=== PATIENT | male | born 1955 | race Caucasian/White ===

== ENCOUNTER 2020-09-07 13:58 | Emergency (ER) | payer SELFPAY ==
[2020-09-07 13:59] VITALS: BP 118/84; PULSE 116; RESP 20; TEMP 36.1; O2SAT 98; BMI 20.5
--- NOTE | 2020-09-07 14:14 | CT_ITS ---
STUDY: CT BRAIN WITHOUT CONTRAST REASON FOR EXAM: Male, 64 years old. Syncope and seizures RADIATION DOSAGE (If Supplied By Facility): CTDIvol = ( 44.99 ) mGy, DLP = ( 796.11 ) mGycm TECHNIQUE: Transaxial CT imaging of the brain was performed without administration of intravenous contrast material. Individualized dose optimization techniques were used for this CT. COMPARISON: No relevant priors. FINDINGS: Normal soft tissue structures. Normal calvarium. Normal size ventricles and extra-axial spaces for the patient''s age. Basal cisterns are patent Nonspecific foci of low-attenuation in the periventricular and subcortical white matter likely related with chronic small vessel disease. There is no intracranial hemorrhage. There are no findings of an acute ischemic infarction. Paranasal sinus disease CT/Brain/Head without Contrast IMPRESSION: No acute intracranial findings Electronically Signed: Richard Santiago MD at 15:48 EST Tel , Service support ,
--- NOTE | 2020-09-07 14:14 | EKG12_ITS ---
Test Reason : SYNCOPE Blood Pressure : / mmHG Vent. Rate : 106 BPM Atrial Rate : 106 BPM P-R Int : 166 ms QRS Dur : 076 ms QT Int : 360 ms P-R-T Axes : 085 060 081 degrees QTc Int : 478 ms Sinus tachycardia Septal infarct , age undetermined Abnormal ECG Confirmed by MICHELLE MESSINA, SERGEI ([id number]), assignment desk editor RAVEN MALDONADO ([id number]) on 09/15/2020 11:22:41 AM Referred By: Confirmed By:CARLOS MARTINEZ MD
--- NOTE | 2020-09-07 14:15 | CT_ITS ---
STUDY: CTA CHEST REASON FOR EXAM: Male, 64 years old. SYNCOPE, POSSIBLE SEIZURE, PE RADIATION DOSAGE (If Supplied By Facility): CTDIvol = ( 7.04 ) mGy, DLP = ( 270.80 ) mGycm TECHNIQUE: The examination was performed with the intravenous administration of IV 100mL Isovue-300. Post-processing of the angiographic images was performed, with multiplanar reformation and 3D reconstruction. Individualized dose optimization techniques were used for this CT. COMPARISON: None. FINDINGS: Pulmonary artery and its branches demonstrate no evidence for filling defects to suggest acute pulmonary embolism. Coronary vascular calcifications. No evidence for mediastinal lymphadenopathy. Upper abdominal structures demonstrate no acute abnormalities. Calcifications of the thoracic aorta seen. A right upper lobe spiculated nodule seen measuring up to 1.3 cm possibly scarring however malignant nodule is not excluded. Follow-up with PET/CT or tissue characterization suggested. Bilateral emphysematous changes. Platelike atelectasis in the lung bases and patchy infiltrates in the right lower lobe. Multiple compression deformities of the thoracic spine noted of indeterminate age. IMPRESSION: No evidence for acute pulmonary embolism. No evidence for aortic dissection. COPD. Right upper lobe nodule measuring up to 1.3 cm possibly scarring however malignancy is not excluded. Please consider PET/CT and/or tissue characterization. Scattered small nodules are also seen bilaterally. Right lower lobe Subtle infiltrates. Electronically Signed: Richard Santiago MD at 15:57 EST Tel , Service support , CT/CTA Chest W/WO Contrast
[2020-09-07 14:36] LABS: Absolute Lymphocyte Count 1.55 X10^3/uL (0.83-4.51); Absolute Neutrophil Count 6.7 X10^3/uL (2.0-7.7); Basophil# 0.07 X10^3/uL; Basophil% 0.8 % (0-1); Eosinophil# 0.13 X10^3/uL; Eosinophils% 1.4 % (0-5); Hematocrit 41.6 % (40-54); Hemoglobin 14.4 g/dL (13.0-16.5); Lymphocyte # 1.55 X10^3/ul (4.0); Lymphocyte % 16.8 % (19-41); Mean Corp Hgb Conc 34.6 g/dL (32-36); Mean Corpuscular Volume 98.1 fL (80-94); Mean Platelet Vol. 9.8 fl (6.2-12.0); Monocyte# 0.76 X10^3/uL; Monocyte% 8.2 % (0-10); NRBC Flagged by Analyzer 0 % (0-5); Neutrophil # 6.68 X10^3/uL (2.7-7.7); Neutrophil % 72.4 % (47-70); POSITIVE COUNT YES; Platelet Count 218 K/mm3 (150-450); RBC Distribution Width CV 12.8 % (11.6-14.6); RBC Distribution Width SD 45.8 fl (35.1-43.9); Red Blood Count 4.24 M/mm3 (4.6-6.2); White Blood Count 9.2 K/mm3 (4.4-11.0)
--- NOTE | 2020-09-07 14:37 | ED.VIS.GEN ---
History of Present Illness Chief Complaint: Seizure Informant: Patient Narrative: This is a 64-year-old male presenting for syncope. Patient tells me that he was in the kitchen he was making chili. He states the next thing he knew he had passed out. He does not recall any prodrome. He does not recall any injuries. No loss of bowel or bladder control. No biting of his tongue. There was initial report that he had a seizure but the patient tells me he was told he did not have any shaking while he was on the ground. He states that he was told he was only out for less than a minute. He tells me that EMS came that he was already up and feeling normal but upon their arrival. This is never happened to him before. Patient states his heart rate may be up because he has not taken his blood pressure medications yet today. Patient denies any current pain. He denies feeling any different than when he did prior to this event. Patient tells me has not taken his blood pressure medications. He states he is on amitriptyline and Lipitor. However on we review his pharmacy records he is on amlodipine and lisinopril which he then states are the correct medications. I spoke with the daughter who witnessed the event. She tells me that they were cooking chili when he suddenly looked like he was going to become short of breath he began to shake and went to the ground. She tells me that he generally had convulsions for 2 to 3 minutes and then stopped. He was slightly confused for a very short period of time and then was fine. Past Medical History - Allergies and Home Meds Allergies/Adverse Reactions: Allergies Unable to Assess Allergy (Verified 09/07/20 13:58) Primary Care Physician: Jhon Ventura MD [Primary Care Provider] - 3-5 Days (Please inform the office when you call that is follow up from an ED visit) Past Medical History: - - Hypertension asthma Surgical History: noncontributory Lives: Spouse/ Significant Other Smoking Status: Current every day smoker Drugs: None Review of Systems General: Denies: Chills, Fever, Sweats Eyes: Denies: Visual changes - bilaterally, Diplopia ENT: Denies: Rhinorrhea, Sore throat Cardiovascular: Reports: - - Syncope. Denies: Chest pain, Palpitations, Heart racing Respiratory: Denies: Dyspnea, Cough, Dyspnea on exertion Gastrointestinal: Denies: Abdominal pain, Nausea, Vomiting, Diarrhea, Melena, Hematochezia Genitourinary: Denies: Dysuria, Hematuria, Frequency Musculoskeletal: Denies: Back pain, Extremity Pain Skin: Denies: Rash, Wounds Neurological: Denies: Headache, Weakness, Numbness Physical Exam Vital Signs/Narrative: Vital Signs Temp Pulse Resp BP Pulse Ox 09/07/20 13:59 97 F L 116 H 20 H 118/84 H 98 Inital Vital Signs reviewed: Yes General: Well nourished, Well developed, No Acute Distress Head: Normocephalic, Atraumatic Eyes: Perrl, EOMI ENT: Moist mucous membranes, No rhinorrhea Neck: Supple, Nontender Cardiovascular: Regular rate, No murmurs, Tachycardia Respiratory: No distress, CTA bilaterally, Chest nontender Abdomen: Soft, Nontender, Nondistended, Normal bowel sounds Back: Nontender, Normal Inspection Extremities: Nontender, No edema Skin: Normal color, No rash Neurological: Alert, Oriented x3, Cranial nerves II-XII grossly intact, Normal Strength, Normal Sensation Psychological: Normal affect, Normal Mood Diagnostic/Tx/Re-eval Laboratory Last Values WBC 9.2 K/mm3 (4.4-11.0) 09/07/20 14:20 RBC 4.24 M/mm3 (4.6-6.2) L 09/07/20 14:20 Hgb 14.4 g/dL (13.0-16.5) 09/07/20 14:20 Hct 41.6 % (40-54) 09/07/20 14:20 MCV 98.1 fL (80-94) H 09/07/20 14:20 MCH 34.0 pg (27.0-32.0) H 09/07/20 14:20 MCHC 34.6 g/dL (32-36) 09/07/20 14:20 RDW Std Deviation 45.8 fl (35.1-43.9) H 09/07/20 14:20 RDW Coeff of Ahsan 12.8 % (11.6-14.6) 09/07/20 14:20 Plt Count 218 K/mm3 (150-450) 09/07/20 14:20 MPV 9.8 fl (6.2-12.0) 09/07/20 14:20 Immature Gran % (Auto) 0.400 % (0.0-0.9) 09/07/20 14:20 Neut % (Auto) 72.4 % (47-70) H 09/07/20 14:20 Lymph % (Auto) 16.8 % (19-41) L 09/07/20 14:20 Norman % (Auto) 8.2 % (0-10) 09/07/20 14:20 Eos % (Auto) 1.4 % (0-5) 09/07/20 14:20 Baso % (Auto) 0.8 % (0-1) 09/07/20 14:20 Absolute Neuts (auto) 6.7 X10^3/uL (2.0-7.7) 09/07/20 14:20 Absolute Lymphs (auto) 1.55 X10^3/uL (0.83-4.51) 09/07/20 14:20 Nucleated RBC % 0 % (0-5) 09/07/20 14:20 Differential Comment SCANNED 09/07/20 14:20 Sodium 128 mmol/L (136-145) L 09/07/20 14:20 Potassium 3.5 mmol/L (3.5-5.1) 09/07/20 14:20 Chloride 96 mmol/L (98-107) L 09/07/20 14:20 Carbon Dioxide 22.0 mmol/L (21.0-32.0) 09/07/20 14:20 Anion Gap 10 (5-15) 09/07/20 14:20 BUN 5 mg/dL (7-18) L 09/07/20 14:20 Creatinine 0.82 mg/dL (0.70-1.30) 09/07/20 14:20 Estim Creat Clear Calc 68.22 ml/min 09/07/20 14:20 Est GFR (MDRD) Af Amer 120 mL/min (>60) 09/07/20 14:20 Est GFR (MDRD) Non-Af 99 mL/min (>60) 09/07/20 14:20 BUN/Creatinine Ratio 6.1 RATIO (10-20) L 09/07/20 14:20 Glucose 104 mg/dL (74-106) 09/07/20 14:20 Calcium 8.7 mg/dL (8.5-10.1) 09/07/20 14:20 Total Bilirubin 0.50 mg/dL (0.20-1.00) 09/07/20 14:20 AST 24 U/L (15-37) 09/07/20 14:20 ALT 17 U/L (16-61) 09/07/20 14:20 Alkaline Phosphatase 47 U/L (45-117) 09/07/20 14:20 Troponin I < 0.015 ng/mL (<0.045) 09/07/20 14:20 Total Protein 6.7 g/dL (6.4-8.2) 09/07/20 14:20 Albumin 3.5 g/dL (3.2-5.0) 09/07/20 14:20 Globulin 3.2 g/dL (2.2-4.2) 09/07/20 14:20 Albumin/Globulin Ratio 1.1 RATIO (0.9-2.4) 09/07/20 14:20 Clinical Impression(s) from Imaging Studies Brain CT 09/07/20 14:14 IMPRESSION: No acute intracranial findings Electronically Signed: Richard Santiago MD at 15:48 EST Tel , Service support , - EKG Initial EKG Interpretation: Sinus Tachycardia - EKG demonstrates a sinus tachycardia with PACs at a rate of 106. - Medical Decision Making Patient was observed on the monitor. Heart rate is come down to the 90s. It is almost always a sinus beat with the occasional ectopic atrial beat or PAC. Patient's work-up is essentially negative. CT the brain negative. CT of the chest was obtained because of the possibility of syncope in the face of tachycardia and to rule out pulmonary embolism, and dissection. Pulmonary nodule noted. There was concern about a small lower lobe pneumonia. Patient has no fever no cough no shortness of breath his lung sounds are clear. Patient was advised should he develop any symptoms he could return. The nodule was discussed with him and it was recommended he obtain follow-up. He will talk to his doctor about this. The daughter's description of events certainly seems like a seizure. It could also still be syncope. Either case I do not see a strong indication for admission. ED Disposition - Plan for ED Patient: Disposition: Home or Assisted Living Diagnosis: Syncope and collapse, Pulmonary nodule 1 cm or greater in diameter Instructions: ED Fainting, Uncertain Cause, ED Seizure New Onset Unknown ..., ED Pulmonary Nodule, Solitary Referrals: Jhon Ventura MD [Primary Care Provider] - 3-5 Days (Please inform the office when you call that is follow up from an ED visit)
[2020-09-07 14:52] LABS: ALB/GLOB Ratio 1.1 RATIO (0.9-2.4); AST(SGOT) 24 U/L (15-37); Alanine Aminotransfer ALT/SGPT 17 U/L (16-61); Albumin, Serum 3.5 g/dL (3.2-5.0); Alkaline Phosphatase 47 U/L (45-117); Anion Gap 10 (5-15); BUN 5 mg/dL (7-18); BUN/Creat Ratio 6.1 RATIO (10-20); Calcium,Total 8.7 mg/dL (8.5-10.1); Chloride 96 mmol/L (98-107); Creatinine, Serum 0.82 mg/dL (0.70-1.30); EST Glomerular Filtration Rate 99 mL/min (>60); Est Glom Filt Rate - Afr Amer 120 mL/min (>60); Estimated Creatinine Clearance 68.22 ml/min; Globulin 3.2 g/dL (2.2-4.2); Glucose 104 mg/dL (74-106); Potassium 3.5 mmol/L (3.5-5.1); Protein, Total 6.7 g/dL (6.4-8.2); Sodium Level 128 mmol/L (136-145)
[2020-09-07 14:54] LABS: Differential Indicated SCAN CRITERIA MET
[2020-09-07 14:58] LABS: Differential Comment SCANNED
[2020-09-07 15:34] VITALS: BP 159/83; PULSE 104; RESP 22; O2SAT 96
[2020-09-07 16:08] VITALS: BP 145/86
== END 2020-09-07 16:12 | disposition home or self-care (01) ==
PROVIDERS: Emergency Provider Emergency Medicine; PCP Family Medicine
DX: R55 Syncope and collapse (principal); R91.1 Solitary pulmonary nodule; I10 Essential (primary) hypertension; J44.9 Chronic obstructive pulmonary disease, unspecified; F17.200 Nicotine dependence, unspecified, uncomplicated; Z79.899 Other long term (current) drug therapy
CPT/HCPCS: 70450; 71275; 80053; 84484; 85025; 93005; 99285; Q9967; A4216

== ENCOUNTER → 2020-10-07 06:28 | Outpatient (CLI) | payer MEDICARE, SELFPAY ==
[2020-09-07 13:59] VITALS: BMI 20.5
--- NOTE | 2020-10-07 06:31 | CT_ITS ---
STUDY: CT SOFT TISSUE NECK WITH CONTRAST REASON FOR EXAM: Male, 65 years old. RIGHT CHEEK MASS RADIATION DOSAGE (If Supplied By Facility): CTDIvol = ( 10.63 ) mGy, DLP = ( 310.85 ) mGycm TECHNIQUE: The patient was scanned in a multi-detector CT scanner. High resolution transaxial imaging was performed following intravenous administration of IV 75mL Isovue-370. Sagittal and coronal images were reconstructed. Individualized dose optimization techniques were used for this CT. COMPARISON: None. FINDINGS: Normal bilateral parotid glands. Normal bilateral desktop publishing associate spaces. Normal bilateral parapharyngeal spaces. Normal bilateral carotid spaces. Normal bilateral sublingual and submandibular glands and spaces. This is a large soft tissue mass arising from the right side of the oropharynx extending caudally into the hypopharynx. This crosses the midline. This extends into the right maxillary region with destruction of the underlying bone. This extends into the soft tissues overlying the right mandible with bony destruction. This mass measures at least 4 cm x 3.8 cm x 5.4 cm. This mass extends into the palate as well. The palpable amount to correspond to 2.3 cm x 1.1 cm inhomogeneous soft tissue mass along the anterior aspect of the mandible. The visualized cervical lymph nodes (levels I-) are within normal size limits, and maintain normal morphology. There is no demonstrated solid or cystic mass lesion. There is no abnormal contrast enhancement. Normal epiglottis, bilateral vallecula and hypopharynx. The pre-epiglottic and paraglottic adipose spaces are normal. Normal visualized bilateral piriform sinuses, aryepiglottic folds, vocal cords, and arytenoid-cricoid articulations. Normal subglottic trachea. Normal bilateral lobes of the thyroid gland. Normal visualized pulmonary apices. Normal visualized paranasal sinuses. There is multilevel degenerative changes of the cervical spine. CT/Soft Tissue Neck WITH Contrast IMPRESSION: Large soft tissue mass arising from the oropharynx extending caudally into the hypopharynx. This crosses the midline. This also extends into the lateral aspect of the oropharynx into the right maxillary region with destruction of the underlying bone. The palpable abnormality corresponds to a 4 cm x 3.8 signed by 5.4 cm inhomogeneous mass. Electronically Signed: Patel Vaca MD at 9:16 EST , Service support ,
== END ==
PROVIDERS: PCP Family Medicine; Visit Provider Otolaryngology
DX: R22.0 Localized swelling, mass and lump, head (principal)
CPT/HCPCS: 70491; Q9967

== ENCOUNTER 2020-11-06 05:51 | Day surgery (SDC) | payer MEDICARE, SELFPAY ==
[2020-10-29 11:05] VITALS: BMI 15.9
[2020-10-31 14:04] VITALS: BMI 15.7
[2020-11-04 13:40] VITALS: BMI 16.2
[2020-11-06 06:31] VITALS: BP 136/72; PULSE 95; RESP 16; TEMP 37.5; O2SAT 97; BMI 15.5
[2020-11-06] MEDS: Lactated Ringers 1,000 ML 100 ML IV (06:38)
--- NOTE | 2020-11-06 07:00 | HP_ITS ---
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 Arjun Emerson MD) Jaw pain, non-TMJ (Acute) Squamous cell cancer of hypopharynx (Acute) COPD (chronic obstructive pulmonary disease) (Chronic) HTN (hypertension) (Chronic) Surgical History No history of previous surgery (Acute) Family History Other No pertinent family history Social History (Updated 10/31/20 @ 15:[address] Arjun Emerson MD) Smoking Status: Current every day smoker HPI HPI HPI: Clementina CUADRA, is a 65 M who presents to the office today for HPI HPI Surgical H&P: Yes HPI: Clementina CUADRA, is a 65 M who presents to the office today for oral cancer. The patient was referred for PEG tube placement as well as port placement. ROS General General: Yes weight change and fatigue; no appetite, colon cancer, breast cancer or weakness HEENT HEENT: No difficulty swallowing, eye injury, eye surgery, swollen glands or hoarseness Endo Endocrine: No thyroid disease, diabetes mellitus, thyroid cancer, Hair loss, heat intolerance or cold intolerance Cardio Cardiovascular: Yes high blood pressure; no murmur, pacemaker, heart disease, atrial fibrillation, heart attack, heart stent, palpitations, shortness of breat with exertion or chest pain Psych Psychiatric: No depression, anxiety or hearing voices Resp Respiratory: No shortness of breath, No sleep apnea, No cough, Yes COPD, No asthma, No emphysema, No wheezing Gastro Gastrointestinal: No abdominal pain, No nausea or vomiting, No diarrhea, No constipation, No blood in stool, No acid reflux, No hemorrhoids, No ulcers, No gallbladder problem, No black,tarry stools Rasta Hematologic: No blood thinners, No blood disorders, No bleeding, No anemia, No blood clots Neuro Neurologic: No weakness Exam Const General: cooperative Orientation: alert, oriented x3 HENMT Other: Right-sided facial swelling Resp Effort & Inspection: normal respiratory effort Auscultation: clear to auscultation bilaterally Cardio Rate: regular rate Rhythm: regular rhythm Heart Sounds: no murmurs GI Inspection: non-distended Palpation: soft, nontender Assessment & Plan Problems 1. 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 Encounter for care related to Port-a-Cath Z45.2 Plan I discussed EGD with PEG tube placement as well as port placement. I discussed the risks involved with both procedures and both procedures in detail. I discussed the risks of the port including but not limited to bleeding, infection, pneumothorax, line infection or DVT. I explained endoscopy in detail to the patient. I explained the risks including but not limited to stroke or heart attack with anesthesia, perforation of the GI tract, bleeding, infection. I explained that any of these could necessitate further emergency surgery. The patient understands and all questions were answered sufficiently. The patient wishes to proceed with procedure. 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 There are no clinical changes since date of exam.
[2020-11-06] MEDS: Cefotetan 2 GM in 0.9% NS 100 ML IV (07:27)
[2020-11-06] MEDS: Bupiv/Epi 0.25% 30 ML Vial (07:44)
[2020-11-06 08:10] VITALS: BP 106/61; BP 136/72; PULSE 88; RESP 16; TEMP 36.6; O2SAT 96
--- NOTE | 2020-11-06 08:10 | OP.EGD_ITS ---
Patient Name: Clementina Darling Procedure Date: 11/06/2020 7:53 AM Date of : 1955 Age: 65 Procedure: Upper GI endoscopy Indications: Place PEG Providers: Arjun Emerson MD Referring MD: Jhon Ventura Medicines: Monitored Anesthesia Care Patient Profile: This is a 65 year old male. Refer to note in patient chart for documentation of history and physical. Complications: No immediate complications. Estimated blood loss: Minimal. Procedure: Pre-Anesthesia Assessment: - Prior to the procedure, a History and Physical was performed, and patient medications and allergies were reviewed. The patient's tolerance of previous anesthesia was also reviewed. The risks and benefits of the procedure and the sedation options and risks were discussed with the patient. All questions were answered, and informed consent was obtained. Prior Anticoagulants: The patient has taken no previous anticoagulant or antiplatelet agents. After reviewing the risks and benefits, the patient was deemed in satisfactory condition to undergo the procedure. After obtaining informed consent, the endoscope was passed under direct vision. Throughout the procedure, the patient's blood pressure, pulse, and oxygen saturations were monitored continuously. The Endoscope was introduced through the mouth, and advanced to the second part of duodenum. The upper GI endoscopy was accomplished without difficulty. The patient tolerated the procedure well. Scope In: 7:53:38 AM Scope Out: 8:00:29 AM Total Procedure Duration Time 0 hours 6 minutes 51 seconds Findings: The patient was placed in the supine position for PEG placement. The stomach was insufflated to appose gastric and abdominal schafer. A site was located in the body of the stomach with excellent transillumination and manual external pressure for placement. The abdominal wall was marked and prepped in a sterile manner. The area was anesthetized with 5 mL of 0.5% lidocaine. The trocar needle was introduced through the abdominal wall and into the stomach under direct endoscopic view. A snare was introduced through the endoscope and opened in the gastric lumen. The guide wire was passed through the trocar and into the open snare. The snare was closed around the guide wire. The endoscope and snare were removed, pulling the wire out through the mouth. A skin incision was made at the site of needle insertion. The externally removable 20 Fr EndoVive Safety gastrostomy tube was lubricated. The G-tube was tied to the guide wire and pulled through the mouth and into the stomach. The trocar needle was removed, and the gastrostomy tube was pulled out from the stomach through the skin. The external bumper was attached to the gastrostomy tube, and the tube was cut to remove the guide wire. The final position of the gastrostomy tube was confirmed by relook endoscopy, and skin marking noted to be 3 cm at the external bumper. The final tension and compression of the abdominal wall by the PEG tube and external bumper were checked and revealed that the bumper was loose and lightly touching the skin and that the PEG balloon was loose and lightly touching the stomach. The feeding tube was capped, and the tube site cleaned and dressed. Impression: - An externally removable PEG placement was successfully completed. - No specimens collected. Recommendation: - Discharge patient to home. - Resume previous diet. - Continue present medications. - Please follow the post-PEG recommendations including: external bolster 1 cm from abdominal wall, change dressing once per day and check site for bleeding q 4 hrs. Procedure Code(s): --- Professional --- 52364, Esophagogastroduodenoscopy, flexible, transoral; with directed placement of percutaneous gastrostomy tube Diagnosis Code(s): --- Professional --- Z43.1, Encounter for attention to gastrostomy CPT copyright 2017 [employer]. All rights reserved. The codes documented in this report are preliminary and upon hoop cutter review may be revised to meet current compliance requirements. Arjun Emerson MD 11/06/2020 8:10:36 AM This report has been signed electronically. Number of Addenda: 0 Note Initiated On: 11/06/2020 7:53 AM
--- NOTE | 2020-11-06 08:11 | OP.CCLET_ITS ---
11/06/2020 Jhon Ventura Re : Upper GI endoscopy procedure for Clementina Darling Dearadha Ventura This procedure was performed on October. My impressions and recommendations are as follows: Impressions : - An externally removable PEG placement was successfully completed. - No specimens collected. Recommendations : - Discharge patient to home. - Resume previous diet. - Continue present medications. - Please follow the post-PEG recommendations including: external bolster 1 cm from abdominal wall, change dressing once per day and check site for bleeding q 4 hrs. My findings are described in the full procedure note, which is enclosed. If I can be of further assistance, please feel free to contact me at Doctor phone number(s): , Work: . Sincerely, Arjun Emerson MD 11/06/2020 8:10:36 AM This report has been signed electronically.
--- NOTE | 2020-11-06 08:11 | PCM.OPRPT ---
Problem List (1) Encounter for care related to Port-a-Cath Status: Acute (2) Oral cancer Status: Acute Report of Operation Date of Procedure: 11/06/20 Pre-Operative Diagnosis: Oral cancer and need for vascular access for chemotherapy as well as a PEG tube for feeding Post-Operative Diagnosis: Same Surgery/Procedure Performed:: 1. Ultrasound-guided left chest port placement utilizing left IJ. 2. EGD with PEG placement Description of Procedure: After obtaining informed consent patient was brought back to the operating room MAC anesthesia was induced and the left chest and neck were prepped in normal sterile fashion. Ultrasound was used to evaluate both IJs and the left IJ was selected. Next, using a needle, the left IJ was accessed and a guidewire was passed on into the superior vena cava under fluoroscopy guidance. A small incision was made over the puncture site and the dilator introducer was placed over the guidewire. Next this was capped and the pocket was made for the port. 1% lidocaine with epinephrine was injected in the proposed port site. An incision was made with scalpel. Electrocautery was used to make a pocket under the skin and subcutaneous tissue. Hemostasis was obtained. Next, the catheter was tunneled up to the neck incision site and placed through the introducer. The peel-away introducer was removed and the position of the catheter was confirmed on fluoroscopy. Next, the catheter was trimmed and attached to the port with the locking device. Interrupted 2-0 Vicryl sutures were used to anchor the port to the chest wall and then the port was placed inside the pocket. The pocket was then flushed with saline and the port irrigated with saline. There was good blood return and the port flushed easily. Next, heparin was injected into the port. The skin was closed with subcutaneous interrupted 3-0 Vicryl sutures. A single 3-0 Vicryl sutures placed under the skin at the neck incision site. Steri-Strips were placed as well as op sites. Next the endoscopy team was brought into the room and an EGD with PEG tube was performed. Please see the corresponding probation operative report for that portion of the procedure. Patient tolerated procedure well, was taken to PACU in stable condition. Chest x-ray will be obtained. Grafts/Implants Used: 8 [place] PowerPort, 20 [place] PEG tube - Admit VTE Documentation VTE Mechan Device Prophylaxis: SCD's
--- NOTE | 2020-11-06 08:13 | DCINST_ITS ---
Discharge Diet: No Restrictions - Pain medication may cause nausea. You should typically eat light foods as you take your pain medication. Discharge Activity: Return to Normal Activity, May Shower - with your bandage in place in 1-2 days after surgery. DO NOT SHOWER WHEN YOUR PORT IS ACCESSED. Call your doctor if your incision/area has: Continuous Slow Oozing, Sudden Increased Bleeding, Increased Pain/ Swelling, Increased Redness Call your doctor if you observe: Fever of 101 or Higher Remove Dressing in (days):: 3 - When you remove the bandage, leave the steri- strips intact until they fall off. Allergies/Adverse Reactions: Allergies No Known Allergies Allergy (Verified 11/06/20 06:01) Medications to take at Discharge Amlodipine [Norvasc] 5 mg PO DAILY 09/07/20 Lisinopril [Zestril] 40 mg PO DAILY 09/07/20 Albuterol IH (ProAir) [Proair Hfa (SP)Vent Pts] 1 puff INHALATION Q4H PRN PRN 10/29/20 Primary Care Physician: Jhon Ventura MD [Primary Care Provider] - Test Results: Test results from this visit will be discussed in further detail at your follow- up appointment, if applicable. Please Follow Up With: Arjun Emerson MD When: as needed
[2020-11-06 08:15] VITALS: BP 115/66; BP 136/72; PULSE 83; RESP 18; O2SAT 98
--- NOTE | 2020-11-06 08:17 | RAD_ITS ---
STUDY: X-RAY CHEST REASON FOR EXAM: Male, 65 years old. pacu -- in pacu . Vascular port insertion. TECHNIQUE: Single AP portable view of the chest. COMPARISON: Comparison is made with prior study dated 04/22/2011. FINDINGS: A left-sided portacatheter has been placed with the tip at the junction of the superior vena cava and right atrium. Hyperinflation. Lungs are clear. There is no demonstrated pleural abnormality. Normal size heart. Normal mediastinum and gabriela. Normal visualized pulmonary arteries. Normal visualized aortic arch and descending thoracic aorta. Normal visualized thoracic spine. Normal visualized ribs, clavicles, and shoulders. There is no demonstrated abnormality of the visualized soft tissue structures of the upper abdomen. RAD/CXR for Line Placement IMPRESSION: The tip of the left-sided portacatheter is at the junction of the superior vena cava and right atrium. The lungs are clear. Hyperinflation. Electronically Signed: Patel Vaca MD at 8:52 EDT , Service support ,
[2020-11-06 08:20] VITALS: BP 111/67; BP 136/72; PULSE 88; RESP 18; O2SAT 97
[2020-11-06 08:26] VITALS: BP 125/63; BP 136/72; PULSE 80; RESP 18; TEMP 36.7; O2SAT 98
[2020-11-06 09:13] VITALS: BP 136/72
== END 2020-11-06 09:24 | disposition home or self-care (01) ==
LOC: SDC 05:52 → AC 05:52
PROVIDERS: Anesthesiology; PCP Family Medicine; Referring Provider Family Medicine; Visit Provider Surgery
PROC: (CPT 36561; principal; 2020-11-06 07:15)
PROC: 0DJ08ZZ Inspection of Upper Intestinal Tract, Via Natural or Artificial Opening Endoscopic (ICD-10-PCS; CPT 43235; 2020-11-06 07:15)
PROC: 0DJ08ZZ Inspection of Upper Intestinal Tract, Via Natural or Artificial Opening Endoscopic (ICD-10-PCS; CPT 43235; principal; 2020-11-06 07:55)
DX: C06.9 Malignant neoplasm of mouth, unspecified (principal); I10 Essential (primary) hypertension; J44.9 Chronic obstructive pulmonary disease, unspecified; F17.200 Nicotine dependence, unspecified, uncomplicated; Z79.51 Long term (current) use of inhaled steroids; Z79.899 Other long term (current) drug therapy; Z20.822 Contact with and (suspected) exposure to COVID-19
CPT/HCPCS: 00532; 36561; 43246; 71045; 77001; 84132; 87426; C9803; J7120; C1788; J2405

== ENCOUNTER 2020-12-31 11:00 | Outpatient (RCR) | payer MEDICARE, SELFPAY ==
[2020-10-29 11:05] VITALS: BMI 15.9
[2020-10-31 14:04] VITALS: BMI 15.7
--- NOTE | 2020-11-12 12:57 | HP.SP.AD_ITS ---
History - History Date of Eval: 11/12/20 Medical Diagnosis (from RX): Oral Cancer (C06.9) Date of Onset of Diagnosis: 10/08/20 Previous speech therapy: No Results: Pt denies history of speech therapy. No records in system. Other Relevant Medical History/Diagnoses/Surgery: The pt is a 65 year old male with PMH of smoking, HTN, alcohol use, jaw pain, and squamous cell cancer of hypopharynx. He is a current smoker and regular alcohol consumer (reports 2-3 beers per day) who presented to [facility] with progressively worsening difficulty with chewing, mouth closure, and swallowing food. He has over 25 pound weight loss since July 2020. He also noted swelling in the right cheek area negatively impacts his ability to chew. He was initially seen by Dr. Lopez on September 29, 2020 who noted an up to 10 cm necrotic fungating mass in the right oral cavity. He was referred to Dr. Butts on October 08, 2020, at and underwent flexible laryngoscopy noting an exophytic lesion involving the midportion of the soft palate on the nasal pharyngeal surface and pathology confirmed squamous cell carcinoma. 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 On 11/06/20, the pt underwent ultrasound-guided left chest port placement utilizing left IJ and EGD with PEG placement. At this time, he is maintaining all intake orally. The pt will be undergoing chemoradiation treatment beginning 11/12/20 to manage his oral cancer. He has declined surgery at this time. September 07, 2020 CTA lung was done and evaluation for syncope: IMPRESSION: No evidence for acute pulmonary embolism. No evidence for aortic dissection. COPD. Right upper lobe nodule measuring up to 1.3 cm possibly scarring however malignancy is not excluded. Please consider PET/CT and/or tissue characterization. Scattered small nodules are also seen bilaterally. September 07, 2020 CT brain ER evaluation for syncope: IMPRESSION: No acute intracranial findings. September 26, 2020 MRI brain [facility] evaluation for syncope: Moderate burden of chronic microvascular ischemic change and moderate to severe brain parenchymal volume loss with no evidence of focal acute brain ischemia, mass-effect or hemorrhage. Smoking Status: Current every day smoker Hx Smoking: Yes Hx Tobacco Use: Yes - Pain Is pain an issue with your current prescribed condition?: Yes - Personal Right Hearing Abillity: Normal Left Hearing Abillity: Normal Visual Assistive Devices: None Patients Living Arrangements: Alone Patient Allergies - Allergies Allergies No Known Allergies Allergy (Verified 11/12/20 08:01) Objective Oral Motor - Oral Status Additional: Pt is edentulous. - Labial Impairment: WNL Observation at Rest: WNL Pucker: WNL Retraction: WNL Alternating Pucker/Retraction: WNL Involuntary Movement noted: No - Labial Comments Comments: Mild impairment in labial closure on L side of oral cavity noted by air leakage when asked to hold air in cheeks. No drooling or anterior spillage of food and drink noted. - Lingual Impairment: WNL Protrusion: WNL Retraction: WNL Lateralization: WNL Involuntary Movement: No - Jaw Impairment: Severe Symmetry, Range, Strength, Tone: The pt was unable to demonstrate tension of muscles of mastication. He additionally could not clench teeth and floor of mouth, indicating weakness of suprahyoid musculature. Opening: Moderate Closing: Moderate Involuntary Movement: No - Jaw Comments Comments: The pt's jaw closure is negatively impacted by necrotic fungating mass observed to extend the entirety of the R buccal cavity and cause edema on the exterior of the cheek. Mass extended to the soft palate and [employer] was unable to observe palatal elevation/movement. He initially denied jaw pain; however, he noted that he experiences a sharp pain to his ear if fully opening jaw. - Oral Motor Comments Comments: The pt denies change in taste or sensation to any part of the oral cavity. He denies changes in vocal quality at this time and presents with mild hoarseness at baseline. CRANIAL NERVE EXAMINATION: TRIGEMINAL NERVE (V) ? impaired; decreased hyolaryngeal elevation, unable to tense muscles of mastication. FACIAL NERVE (VII) ? impaired; mild labial weakness. VAGUS NERVE (X) ? no clinical abnormalities observed; however, difficult to assess due to size of buccal mass and exophytic lesion of soft palate. HYPOGLOSSAL NERVE (XII) ? no clinical abnormalities observed. - Respiratory Status Respiratory Status: Room Air Other Impressions - Comments Bedside Swallow Evaluation -: Pt sitting upright in chair and self-administered all sips and bites. Pt reported he currently avoids any meats that are not ground. He consumes mostly soft textures, such as baked potatoes, hard boiled eggs, fish, and ground meats. Trialed thin liquids via straw initially. Pt consumed 4 sips, demonstrating coughing immediately following 1 sip and throat clearing immediately following 1 sip. He noted the larger the sip, the more he coughs. Pt consumed sips via cup, independently consuming single sips and pt presented with mild delay initiating swallow, no overt s/s of aspiration, no changes in vocal quality post deglutition. Pt consumed bites of applesauce with good bolus preparation, no overt s/s of aspiration, oral residue WFL, and no changes in vocal quality post deglutition. Pt declined bites of regular-textured Ondina Doone cookie, including bites crushed in applesauce. The pt presents with moderate oropharyngeal cancer. Will recommend pt for Minced and Moist textures / Thin liquids via cup with aspiration precautions, including NO STRAWS, single sips, small bites/sips, slow rate, and upright 90 degrees for po intake. Discussed recommendations with pt and removed straw from ensure at tableside. Provided pt handout regarding Minced and moist diet textures for bolus preparation, testing, example foods, and foods to avoid. Pt verbalized understanding, although would benefit from continued education regarding diet recommendations and aspiration precautions. Education -: Additional education provided for impact of chemoradiation treatment on swallow function during and post treatment, including effects such as mucositis, radiation fibrosis, restricted ROM of swallowing mechanism. Provided pt handout and demonstration/return demonstration of prophlactic exercise program with goal to maintain swallow function, maintain oral intake, and reduce side effects of chemoradiation on swallow mechanism. [employer] educated pt in his increased risk for aspiration related illnesses, especially without use of aspiration precautions due to oral cancer and current treatment. Additionally recommended MBS study to objectively assess swallow function and establish further recommendations for diet textures, compensatory strategies, and aspiration precautions. Pt agreeable to recommendations. Plan - Plan Plan: Will recommend pt for dysphagia therapy to oropharyngeal dysphagia related to oral cancer and to provide pt further education re: prophylactic exercise program, ongoing diet assessment, aspiration precautions, and compensatory strategies to decrease risk for aspiration. Without skilled ST services, the pt is at risk for aspiration, choking, further weight loss, and malnutrition. - Recommendations MBS: Yes Treatment Warranted: Yes - Frequency Frequency: 1x/Week Duration: 12 Months - Prognosis Prognosis: Fair - Goals that are Established: Determination:: Goals will be added/modified as deemed necessary and appropriate. Therapy will be discontinued when results of re-evaluation indicate therapy is no longer needed or lack of progress has been documented. - Goal #1-5 Goal #1: The pt will consume least restrictive diet textures without overt s/s of aspiration with 90% accuracy with minimal verbal cues for use of compensatory strategies to decrease risk for aspiration. Goal #2: The pt will complete an oropharyngeal exercise program during and post chemoradiation treatment X10 repetitions, 3-5X daily independently to improve and maintain strength, ROM, and coordination of swallowing mechanism. Goal #3: The pt will complete jaw strength, coordination, and ROM exercises during and post chemoradiation treatment X10 repetitions, 3-5X daily independen tly to improve and maintain mastication abilities. Goal #4: The pt will participate in MBS study to objectively assess swallow function and provide recommendations for safest, least restricitive diet and compensatory strategies to reduce risk for aspiration. Education - Patient has Indicated that the Following Identified Educational Needs: Other Other Educational Needs: RN concerns for cognitive impairment. - Patient Instruction Patient Education: Diagnosis, Treatment Plan, Goals, Safety Precautions, Diet Level, Home Exercise Program Person Taught: Patient Teaching Method: Discussion, Demonstration, Handout, Teach back Response to teaching: Return demonstration, Verbalize understanding, Reinforcement needed
--- NOTE | 2020-12-31 12:58 | HP.SP.ADRE_ITS ---
Previous/Current Goals - Goals 1-5 Previous Goal #1: The pt will consume least restrictive diet textures without overt s/s of aspiration with 90% accuracy with minimal verbal cues for use of compensatory strategies to decrease risk for aspiration. Goal 1 Status: NOT MET - The pt is reporting little po intake, mostly liquids at this time. He has been unable to quantify amount of po intake, but has stated he has liquids throughout his day and little intake of soft solids or blended textures. He reports little to no taste and decreased appetite due to PEG tube feedings (approximately 2-3 cartons per day). Previous Goal #2: The pt will complete an oropharyngeal exercise program during and post chemoradiation treatment X10 repetitions, 3-5X daily independently to improve and maintain strength, ROM, and coordination of swallowing mechanism. Goal 2 Status: PROGRESSING - The pt reports completing exercises at home 1X daily. With therapist present, he completes 5-10 repetitions of oropharyngeal exercises, with exception of Jesús Maneuver, which he is unable to complete at this time. Previous Goal #3: The pt will complete jaw strength, coordination, and ROM exercises during and post chemoradiation treatment X10 repetitions, 3-5X daily independently to improve and maintain mastication abilities. Goal 3 Status: PROGRESSING - The pt reports completing exercises at home 1X daily. With therapist present, he completes X10 repetitions of jaw strength and ROM exercises. Previous Goal #4: The pt will participate in MBS study to objectively assess swallow function and provide recommendations for safest, least restricitive diet and compensatory strategies to reduce risk for aspiration. Goal 4 Status: NOT MET - Pt no showed first MBS due to scheduling conflict. History - History Date of Eval: 11/12/20 Medical Diagnosis (from RX): Oral cancer (C06.9) Date of Onset of Diagnosis: 10/08/20 Previous speech therapy: Yes Results: Pt denies history of speech therapy. No records in system. Other Relevant Medical History/Diagnoses/Surgery: The pt is a 65 year old male with PMH of smoking, HTN, alcohol use, jaw pain, and squamous cell cancer of h ypopharynx. He is a current smoker and regular alcohol consumer (reports 2-3 beers per day) who presented to [facility] with progressively worsening difficulty with chewing, mouth closure, and swallowing food. He has over 25 pound weight loss since July 2020. He also noted swelling in the right cheek area negatively impacts his ability to chew. He was initially seen by Dr. Lopez on September 29, 2020 who noted an up to 10 cm necrotic fungating mass in the right oral cavity. He was referred to Dr. Butts on October 08, 2020, at and underwent flexible laryngoscopy noting an exophytic lesion involving the midportion of the soft palate on the nasal pharyngeal surface and pathology confirmed squamous cell carcinoma. 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 On 11/06/20, the pt underwent u ltrasound-guided left chest port placement utilizing left IJ and EGD with PEG placement. At this time, he is maintaining all intake orally. The pt will be undergoing chemoradiation treatment beginning 11/12/20 to manage his oral cancer. He has declined surgery at this time. September 07, 2020 CTA lung was done and evaluation for syncope: IMPRESSION: No evidence for acute pulmonary embolism. No evidence for aortic dissection. COPD. Right upper lobe nodule measuring up to 1.3 cm possibly scarring however malignancy is not excluded. Please consider PET/CT and/or tissue characterization. Scattered small nodules are also seen bilaterally. September 07, 2020 CT brain ER evaluation for syncope: IMPRESSION: No acute intracranial findings. September 26, 2020 MRI brain [facility] evaluation for syncope: Moderate burden of chronic microvascular ischemic change and moderate to severe brain parenchymal volume loss with no evidence of focal acute brain ischemia, mass-effect or hemorrhage. Pt has participated in concomitant chemoradiation with low-dose weekly cisplatin November 12, 2020 Smoking Status: Current every day smoker Hx Smoking: Yes Hx Tobacco Use: Yes - Pain Is pain an issue with your current prescribed condition?: Yes - Personal Right Hearing Abillity: Normal Left Hearing Abillity: Normal Visual Assistive Devices: Glasses Patients Living Arrangements: Alone Patient Allergies - Allergies Allergies No Known Allergies Allergy (Verified 12/31/20 11:06) Objective Oral Motor - Oral Status Additional: Pt is edentulous. - Labial Impairment: WNL Observation at Rest: WNL Pucker: WNL Retraction: WNL Alternating Pucker/Retraction: WNL Involuntary Movement noted: No - Lingual Impairment: Mild - Generalized weakness. Protrusion: WNL Retraction: WNL Lateralization: WNL Involuntary Movement: No - Jaw Impairment: Moderate Symmetry, Range, Strength, Tone: The pt was unable to demonstrate tension of muscles of mastication. He additionally could not clench teeth and floor of mouth, indicating weakness of suprahyoid musculature. Opening: Moderate Closing: WNL Involuntary Movement: No - Respiratory Status Respiratory Status: Room Air Objective Cancer - Functional Oral Intake Scale Tube dependent with minimal attempts of food or liquid: Level 2 Other Impressions - Comments Bedside Swallow Evaluation -: Trialed sips of thin liquids via cup and straw. Pt consumed sips 1 at a time independently demonstrating no overt s/s of aspiration or changes in vocal quality post deglutition. Pt required max encouragement to consume bites of applesauce. He consumed bites with reduced ROM of jaw with bolus manipulation, good oral clearance, no overt s/s of aspiration, and no complaints of discomfort with swallow. Will recommend the pt continue with current diet textures of minced and moist textures / thin liquids with aspiration precautions for small single sips, upright 90 degrees for intake. Education -: Education provided regarding the potential impacts of chemoradiation treatment on swallow function during and post treatment, including effects such as mucositis, dysgeusia, radiation fibrosis, and disuse atrophy which may result in restricted range of motion and weakness of swallowing mechanism. Discussed impaired swallowing and increased risk for aspiration, aspiration related illnesses, weight loss, and malnutrition. Discussed importance for speech therapy to monitor and address dysphagia both pre, during, and post radiation treatment to maintain optimal swallow function through continued education and prophylactic exercise program. Patient has been trained thoroughlty in prophylactic oropharyngeal exercise program, as well as jaw ROM exercises. The patient would benefit from continued training to monitor proper execution of exercises and encourage strict adherence to exercise program. Swallowing Scales -: Performance Status Scale for Head and Neck Cancer Patients: Normalcy of Diet ? 0 ? Non-oral feeding (liquids consumed throughout day with minimal consumption of solid textures). Public Eating ? 0 ? Always eats alone. Understandability of Speech ? 100 ? Always understandable. Cranial Nerve Exam -: CRANIAL NERVE EXAMINATION: TRIGEMINAL NERVE (V) ? impaired; decreased hyolaryngeal elevation, decreased strength in muscles of mastication. FACIAL NERVE (VII) ? no clinical abnormalities observed; however, the pt reports absent taste. VAGUS NERVE (X) ? no clinical abnormalities observe; pt appeared to have velar elevation; however, unable to fully visualize velum and palatoglossal arch due to restricted jaw ROM. HYPOGLOSSAL NERVE (XII) ? impaired; deviation to right side. Plan - Plan Plan: Will recommend the patient for continued skilled outpatient dysphagia therapy to address oropharyngeal dysphagia related to oral cancer and to provide the patient further education re: prophylactic exercise program, diet recommendations, aspiration precautions, and compensatory strategies to decrease risk for aspiration. Additionally, will provide ongoing assessment of diet tolerance during and post radiation treatment. Without skilled ST services, the patient is at risk for aspiration, weight loss, and malnutrition. - Recommendations MBS: Yes Treatment Warranted: Yes - Frequency Frequency: Every Other Week Duration: 12 Months - Prognosis Prognosis: Fair - Goals that are Established: Determination:: Goals will be added/modified as deemed necessary and appropriate. Therapy will be discontinued when results of re-evaluation indicate therapy is no longer needed or lack of progress has been documented. - Goal #1-5 Goal #1: The pt will consume least restrictive diet textures without overt s/s of aspiration with 90% accuracy with minimal verbal cues for use of compensatory strategies to decrease risk for aspiration. Prompts: Max Goal #2: The patient will complete an oropharyngeal exercise program during and post radiation treatment X10 repetitions, 3-5X daily independently to improve and maintain strength, ROM, and coordination of swallowing mechanism. Prompts: Mod Goal #3: The patient will complete jaw strength, coordination, and ROM exercises during and post radiation treatment X10 repetitions, 3-5X daily independently to improve and maintain mastication abilities. Prompts: Mod Goal #4: The patient will participate in MBS study to objectively assess swallow function and provide recommendations for safest, least restrictive diet and compensatory strategies to reduce risk for aspiration.
--- NOTE | 2021-03-11 09:52 | HP.SP.DC_ITS ---
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 He attended 7 sessions for ongoing assessment of diet tolerance, training in aspiration precautions, and training in oropharyngeal strengthening exercises. 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 He has not called to schedule additional sessions and will be discharged from speech therapy at this time.
== END 2020-12-31 19:00 | disposition home or self-care (01) ==
LOC: SP 11:00
PROVIDERS: PCP Family Medicine; Referring Provider Student in an Organized Health Care Education/Training Program; Visit Provider Student in an Organized Health Care Education/Training Program
DX: Z51.11 Encounter for antineoplastic chemotherapy (principal); Z51.0 Encounter for antineoplastic radiation therapy; C05.1 Malignant neoplasm of soft palate; E87.6 Hypokalemia; C06.9 Malignant neoplasm of mouth, unspecified; R13.12 Dysphagia, oropharyngeal phase
CPT/HCPCS: 77386; 80053; 83735; 85025; 92507; 92526; 92610; 96367; 96368; 96376; 96413; 96415; J7030; J7050; A4216; J1453; J1940; J2469; J3475; J3490; J9060